=== PATIENT | female | born 1980 | race Caucasian/White ===

== ENCOUNTER 2021-04-16 06:44 | Day surgery (SDC) | payer BC, OTHER ==
--- NOTE | 2021-04-16 05:17 | PCM.OPNOTE ---
- General Post-Op/Procedure Note Date of Surgery/Procedure: 04/16/21 Operative Procedure(s): Laparoscopic assisted vaginal hysterectomy. Bilateral salpingectomy Findings: SVE with mobile, midposition uterus. Intraabdominal evaluation with minimal adhesive disease between bladder and uterus. Normal appearance of the uterus, fallopian tubes, and ovaries bilaterally . Some pelvic congestion noted Pre Op Diagnosis: Dysmenorrhea. Abnormal uterine bleeding Post-Op Diagnosis: Same Anesthesia Technique: General ET Tube Primary Surgeon: Bella Cunningham Secondary Surgeon: Melanie Salas Anesthesia Provider: Elizabet Hardwick Reason Structural Rigger Was Necessary: Speed, safety of procedure Pathology: Cervix, uterus, fallopian tubes sent to pathology for further evaluation Fluid Replacement, Intraop: 2,200 Output, Urine Amount: 75 EBL in mLs: 100 Complications: None Condition: Good Free Text/Narrative:: The risks, benefits, indications, potential complications, and alternatives were explained to the patient and informed consent obtained. The patient was taken to the Operating Room where general anesthesia was induced without complication. The patient was placed in dorsal lithotomy with Chad Stirrups and an exam under anesthesia revealed the findings detailed above. The patient was then prepped and draped in the usual sterile fashion. A sterile bivalve speculum was placed into the vagina and the anterior lip of the cervix was grasped with a single tooth tenaculum, but there was difficulty placing uterine manipulator. The speculum and single tooth tenaculum were removed from the vagina. Sponge stick placed into the vagina. A Mcwilliams catheter was placed in sterile fashion. Attention was then turned to the patients abdomen where a Veress needle was carefully introduced into the peritoneal cavity while tenting the abdominal wall. Intraperitoneal placement was confirmed by free flow of saline into the a bdomen from a syringe open to gravity and with a low intraabdominal pressure with insufflation of C02 gas on low flow. The gas was increased to high flow and a pneumoperitoneum was obtained with C02 gas to a pressure of 15 mm Hg. A 5 mm skin incision was made in a vertical fashion in the umbilical fold and a 5 mm blunt trocar was inserted into the abdomen with direct visualization of the laparoscope through the clear view trocar lens. 5 mm skin incisions were made in both the left and right lower quadrants approximately 10 cm lateral and 3 cm inferior to the umbilicus. 5 mm blunt trocars were inserted into the abdomen under direct visualization with care to avoid the abdominal wall vasculature. A blunt probe and grasper were inserted through the accessory ports and a survey of the abdomen revealed the findings detailed above. The right fallopian tube was elevated with the blunt graspers at the fimbriated end. The LigaSure was used to grasp, elevate, cauterize and transect the right mesosalpinx from the fimbriated end toward the uterus. It was then amputated at the cornua and removed through a 5 mm trocar. The round ligament on the right was then elevated, cauterized, and transected with the LigaSure. Hemostasis was noted. Next, the vesicouterine peritoneum was elevated gently with a blunt grasper and the LigaSure was used dissect the vesicouterine peritoneum to make a bladder flap. Two more small bites along the right side of the uterus were made with the LigaSure to skeletonize the uterine artery. Hemostasis was noted. The exact same procedure was carried out on the left. Hemostasis as noted. The CO2 gas was turned off and the laparoscope was removed. Attention was then turned to the vaginal portion of the procedure. A short weighted speculum was placed in the vagina, and the cervix was grasped with a single tooth tenaculum. The cervix was injected circumferentially with 10 mL of lidocaine with dilute epinephrine. The cervix was then circumferentially incised with a scalpel. A Raytec was used to bluntly dissect the cervix circumferentially until an avascular plane was obtained. The posterior cul-de-sac was entered sharply without difficulty. A 0-Vicryl pop-off suture was placed at six o'clock to include the posterior vaginal mucosa and posterior peritoneum. The short weighted speculum was replaced by the long weighted speculum. The uterosacral ligaments were grasped on either side with the LigaSure, cauterized, and transected. The bladder was dissected off the pubovesical cervical fascia anteriorly with a sponge and blunt dissection. The anterior cul-de-sac was then entered sharply without difficulty. The cardinal ligaments were then serially clamped with the LigaSure, cauterized, and transected. The uterine arteries were then clamped with the LigaSure, cauterized, and transected. Hemostasis was then noted. The fundus and adnexa were confirmed to be free of any further peritoneal attachments and then were pulled out through the vagina. The posterior peritoneum was closed with a running, locked suture of 0 Vicryl. The vaginal cuff was closed with two separate sutures of 0-Vicryl begun at either apex and run towards the midline in a running locked fashion. Hemostasis was noted. Attention was then again turned to the abdomen. All members of the surgical team changed gloves. The laparoscope was again inserted and the abdomen was again insufflated with CO2. The pedicles were again visualized. Ezio seal was placed along the vaginal cuff. The patient was taken out of Trendelenburg position. The accessory trocars were removed under direct visualization. The pneumoperitoneum was allowed to escape. The umbilical trocar was removed and lastly the camera was removed from the abdomen under direct visualization to confirm no herniation into the port site. All skin incisions were re- approximated with 4-0 Monocryl and sealed with Dermabond. Hemostasis was noted. A total of 10 cc of 0.25% Marcaine was injected into the subcutaneous tissues surrounding the skin incisions for local anesthesia. All sponge, lap, needle, and instrument counts were correct x 2. The patient tolerated the procedure well and there were no complications.
[~2021-04-16 06:44] MED LIST: Lactated Ringers 1,000 ML IV SCH; Lidocaine 1%/Sod Bicarbonate in NS 8.4% 1 ML Syringe IDERM PRN; Sodium Chloride 0.9% 10 ML Syringe FLUSH PRN
[2021-04-16] MEDS ORDERED: Lidocaine 1% with EPINEPHrine 1:100,000 10 ML MDV ONE (07:23)
[2021-04-16] MEDS ORDERED: Bupivacaine 0.5% 30 ML SDV ONE (07:24)
[2021-04-16] MEDS ORDERED: Albuterol 0.083% 2.5 MG/3 ML Neb Soln NEB SCH (07:29)
--- NOTE | 2021-04-16 07:29 | PCM.PREANE ---
Preanesthetic Assessment - Procedure Proposed Procedure: lap assisted vag hyst - Anesthesia/Transfusion/Family Hx Anesthesia History: Prior Anesthesia Without Reaction Family History of Anesthesia Reaction: No Transfusion History: No Prior Transfusion(s) - Review of Systems General: No Symptoms Pulmonary: No Symptoms Cardiovascular: No Symptoms Gastrointestinal: Abdominal Pain (cramps) Neurological: Headache (neck injury) Other: Reports: Anxiety - Physical Assessment NPO Status Date: 04/15/21 NPO Status Time: 20:00 Vital Signs: 101/72 64 98% 16 98.1 Height: 5 ft 5 in Weight: 54.431 kg ASA Class: 2 Mental Status: Alert & Oriented x3 Airway Class: Mallampati = 1 Dentition: Reports: Normal Dentition Thyro-Mental Finger Breadths: 3 Mouth Opening Finger Breadths: 3 ROM/Head Extension: Full Lungs: Clear to Auscultation, Normal Respiratory Effort Cardiovascular: Regular Rate, Regular Rhythm - Lab Values: Laboratory Last Values Urine HCG, Qual Negative (NEGATIVE) 04/16/21 06:50 - Allergies Allergies/Adverse Reactions: Allergies Allergy/AdvReac Type Severity Reaction Status Date / Time bee pollen Allergy Rash Verified 04/15/21 14:01 latex Allergy blisters Verified 04/15/21 14:01 after [facility] contact Penicillins Allergy Shortness Verified 04/15/21 14:01 of Breath - Blood Blood Available: Yes - Acknowledgements Anesthesia Type Planned: General Anesthesia Pt an Appropriate Candidate for the Planned Anesthesia: Yes Alternatives and Risks of Anesthesia Discussed w Pt/Guardian: Yes Pt/Guardian Understands and Agrees with Anesthesia Plan: Yes PreAnesthesia Questionnaire HEENT History: Reports: Allergic Rhinitis, Other (See Below) Other HEENT History: fluid drainage from bilateral ears, eustachian tube dy sfunction Cardiovascular History: Reports: None Respiratory History: Reports: COPD Gastrointestinal History: Reports: None Genitourinary History: Reports: UTI, Recurrent [employer] History: Reports: , Other (See Below) Other OB/BYN History: laparoscopic ovarian cystectomy Musculoskeletal History: Reports: Back Pain, Chronic, Fracture Neurological History: Reports: Headaches, Chronic, Migraines Psychiatric History: Reports: Anxiety Endocrine/Metabolic History: Reports: None Hematologic History: Reports: None Immunologic History: Reports: None Oncologic (Cancer) History: Reports: None Dermatologic History: Reports: Other (See Below) Other Dermatologic History: hyperhidrosis - Infectious Disease History Infectious Disease History: Reports: Chicken Pox - Past Surgical History HEENT Surgical History: Reports: None Cardiovascular Surgical History: Reports: None Respiratory Surgical History: Reports: None GI Surgical History: Reports: Appendectomy, Colonoscopy Female Surgical History: Reports: Breast Implant, Section Other Female Surgeries/Procedures: hx breast augmentation, c/section Endocrine Surgical History: Reports: None Neurological Surgical History: Reports: None Musculoskeletal Surgical History: Reports: Other (See Below) Other Musculoskeletal Surgeries/Procedures:: 2012: compound fractured neck- no suirgery. hand surgery Oncologic Surgical History: Reports: None - SUBSTANCE USE Tobacco Use Status *Q: Current Every Day Tobacco User Tobacco Use Within Last Twelve Months: Cigarettes Second Hand Smoke Exposure: Yes Days Per Week of Alcohol Use: 1 Recreational Drug Use History: No - HOME MEDS Home Medications: Home Meds . [No Known Home Meds] 04/15/21 [History] - CURRENT (IN HOUSE) MEDS Current Meds: Current Medications Lactated Ringer's (Ringers, Lactated) 1,000 mls @ 125 mls/hr IV ASDIRECTED GEOFF Stop: 04/16/21 23:00 Lidocaine/Sodium Bicarbonate (Lidocaine 1%/Sod Bicarbonate In Ns 8.4% 1 Ml Syringe) 0.25 ml IDERM ONETIME PRN PRN Reason: Prior to IV Start Stop: 04/16/21 18:00 Sodium Chloride (Sodium Chloride 0.9% 10 Ml Syringe) 10 ml FLUSH ASDIRECTED PRN PRN Reason: Keep Vein Open Stop: 04/16/21 18:00
[2021-04-16] MEDS ORDERED: Ondansetron 4 MG/2 ML SDV ONE (07:34)
[2021-04-16] MEDS ORDERED: Lidocaine 1% 4 ML ONE (07:34)
[2021-04-16] MEDS ORDERED: Rocuronium 50 MG/5 ML Vial ONE (07:34)
[2021-04-16] MEDS ORDERED: Propofol 200 MG/20 ML SDV ONE (07:35)
[2021-04-16] MEDS ORDERED: ceFAZolin 1 GM Vial ONE (07:35)
[2021-04-16] MEDS ORDERED: fentaNYL 250 MCG/5 ML SDV ONE (07:35)
[2021-04-16] MEDS ORDERED: Midazolam 1 MG/ML 2 ML SDV ONE (07:35)
[2021-04-16] MEDS ORDERED: HYDROmorphone 0.5 MG/0.5 ML Syringe IVPUSH PRN (07:51)
[2021-04-16] MEDS ORDERED: fentaNYL 100 MCG/2 ML SDV IVPUSH PRN (07:51)
[2021-04-16] MEDS ORDERED: Ondansetron 4 MG/2 ML SDV IVPUSH PRN (07:51)
[2021-04-16] MEDS ORDERED: Ketorolac 30 MG/ML SDV ONE (08:14)
[2021-04-16] MEDS ORDERED: Dexamethasone 4 MG/ML 5 ML MDV ONE (08:14)
[2021-04-16] MEDS ORDERED: Lactated Ringers 1,000 ML ONE ×2 (08:33→09:17)
[2021-04-16] MEDS ORDERED: HYDROmorphone 0.5 MG/0.5 ML Syringe ONE ×2 (08:38→09:06)
[2021-04-16] MEDS ORDERED: Ketamine 500 mg/10 ML MDV ONE (08:42)
[2021-04-16] MEDS ORDERED: Lactated Ringers 0 ML ONE (09:16)
--- NOTE | 2021-04-16 10:15 | PCM.POSTAN ---
POST ANESTHESIA ASSESSMENT - MENTAL STATUS Mental Status: Alert - VITAL SIGNS Vital Signs: Last Vital Signs 99/64 100 3 L 67 16 97.3 Temp 36.7 C 04/16/21 07:00 Pulse 64 04/16/21 07:00 Resp 16 04/16/21 07:00 BP 101/72 04/16/21 07:00 Pulse Ox 100 04/16/21 07:29 - RESPIRATORY Respiratory Status: Respiratory Rate WNL, Airway Patent, O2 Saturation Stable, Supplemental Oxygen - CARDIOVASCULAR CV Status: Pulse Rate WNL, Blood Pressure Stable - GASTROINTESTINAL GI Status: No Symptoms - PAIN Pain Score: 0 - POST OP HYDRATION Hydration Status: Adequate & Stable
--- NOTE | 2021-04-16 12:52 | PCM48HPAN ---
Post Anesthesia Note - EVALUATION WITHIN 48HRS OF ANESTHETIC Vital Signs in Normal Range: Yes Patient Participated in Evaluation: Yes Respiratory Function Stable: Yes Airway Patent: Yes Cardiovascular Function Stable: Yes Hydration Status Stable: Yes Pain Control Satisfactory: Yes Nausea and Vomiting Control Satisfactory: Yes Mental Status Recovered: Yes Vital Signs: Last Vital Signs Temp 36.4 C 04/16/21 10:56 Pulse 76 04/16/21 10:56 Resp 16 04/16/21 10:56 BP 91/73 04/16/21 10:56 Pulse Ox 95 04/16/21 10:56
[2021-04-16 15:58] VITALS: BP 96/64; PULSE 71
== END 2021-04-16 12:36 | disposition home or self-care (01) ==
LOC: JD.SDS 06:44
PROVIDERS: ATTEND Obstetrics & Gynecology
DX: D25.9 Leiomyoma of uterus, unspecified (principal); N80.0 Endometriosis of uterus; K66.0 Peritoneal adhesions (postprocedural) (postinfection); N83.8 Other noninflammatory disorders of ovary, fallopian tube and broad ligament; J44.9 Chronic obstructive pulmonary disease, unspecified; F17.210 Nicotine dependence, cigarettes, uncomplicated; G89.29 Other chronic pain; Z90.49 Acquired absence of other specified parts of digestive tract; Z98.890 Other specified postprocedural states; Z88.0 Allergy status to penicillin; Z91.040 Latex allergy status; Z91.030 Bee allergy status
CPT/HCPCS: 36415; 58552; 80048; 81025; 85025; 86850; 86900; 86901; 94640; J0690; J1100; J1170; J1885; J2250; J2370; J2405; J2704; J2710; J3010; J3490; J7120; 00944